=== PATIENT | female | born 1990 | race American Indian/Alaskan Native ===

== ENCOUNTER 2019-11-30 19:08 | Emergency (ER) | payer SELFPAY ==
[2019-11-30 20:01] VITALS: BP 145/68
--- NOTE | 2019-11-30 21:39 | Emergency Department Report ---
ED Female HPI - General Chief complaint: Urogenital-Female Stated complaint: VAGINAL IRRITATION Time Seen by Provider: 11/30/19 20:59 Source: patient Mode of arrival: Ambulatory Limitations: No Limitations - History of Present Illness Initial comments: Patient presents with vaginal irritation and itching x3 days. She denies concern for STD. There is no abdominal pain, nausea vomiting fever chills. Patient denies dysuria frequency urgency or hematuria. Last muscle cycle 1 week ago. I have discussed symptoms with this patient including possible diagnosis of fungal infection versus BV patient adamant no STD there is no abdominal pain nausea vomiting or fever chills. Patient does not have an emergency medical condition. Patient will follow-up with [facility] Doctor for evaluation and treatment of this problem. MSE exam is complete patient has no emergency medical condition. MD Complaint: other (irritation ) Onset/Timin -: days(s) Severity: mild Severity scale (0 -10): 3 Quality: other (itching ) Consistency: intermittent Improves with: none Worsens with: none Are you Now?: No - Related Data Allergies Allergy/AdvReac Type Severity Reaction Status Date / Time No Known Allergies Allergy Unverified 11/30/19 19:12 ED Review of Systems ROS: Stated complaint: VAGINAL IRRITATION Other details as noted in HPI Constitutional: denies: fever Eyes: denies: eye discharge, vision change ENT: denies: ear pain, throat pain Respiratory: denies: cough, shortness of breath, wheezing Cardiovascular: denies: chest pain, palpitations Endocrine: no symptoms reported Gastrointestinal: denies: abdominal pain, nausea, diarrhea Genitourinary: denies: urgency, dysuria, discharge Musculoskeletal: denies: back pain, joint swelling, arthralgia Skin: denies: rash, lesions Neurological: denies: headache, weakness, paresthesias Psychiatric: denies: anxiety, depression Hematological/Lymphatic: denies: easy bleeding, easy bruising ED Past Medical Hx - Past Medical History Previous Medical History?: No - Surgical History Past Surgical History?: No - Social History Smoking Status: Never Smoker ED Physical Exam - General Limitations: No Limitations General appearance: alert, in no apparent distress - Head Head exam: Present: atraumatic, normocephalic - Eye Eye exam: Present: normal appearance - ENT ENT exam: Present: mucous membranes moist - Neck Neck exam: Present: normal inspection - Respiratory Respiratory exam: Present: normal lung sounds bilaterally. Absent: respiratory distress - Cardiovascular Cardiovascular Exam: Present: regular rate, normal rhythm, normal heart sounds. Absent: systolic murmur, diastolic murmur, rubs, gallop - GI/Abdominal GI/Abdominal exam: Present: soft. Absent: distended, tenderness - Extremities Exam Extremities exam: Present: normal inspection - Back Exam Back exam: Present: normal inspection - Neurological Exam Neurological exam: Present: alert, oriented X3 - Psychiatric Psychiatric exam: Present: normal affect, normal mood - Skin Skin exam: Present: warm, dry, intact, normal color. Absent: rash ED Course Vital Signs 11/30/19 19:56 Temperature 98.6 F Pulse Rate 80 Respiratory 16 Rate Blood Pressure 145/68 [Left] O2 Sat by Pulse 100 Oximetry ED Medical Decision Making - Medical Decision Making MSE completed , pt elects to seek tx with [facility] outpatient, as she does not have an emergency medical condition at this timel Critical care attestation.: If time is entered above; I have spent that time in minutes in the direct care of this critically ill patient, excluding procedure time. ED Disposition Clinical Impression: Vaginal irritation Disposition: Z- MED SCREENING EXAM-LEFT Is pt being admited?: No Does the pt Need Aspirin: No Condition: Stable Referrals: [facility] [Provider Group] - 3-5 Days Time of Disposition: 21:42
== END 2019-11-30 22:26 | disposition left against medical advice (07) ==
LOC: ED 19:08
DX: N89.8 Other specified noninflammatory disorders of vagina (principal)
CPT/HCPCS: 99282